=== PATIENT | female | born 1995 | race African-American/Black ===

== ENCOUNTER 2020-09-16 12:15 | Emergency (ER) | payer BC ==
[2020-09-16 12:34] VITALS: BMI 27.8
[2020-09-16 15:16] VITALS: BP 102/62; PULSE 87; TEMP 98.8
== END 2020-09-16 22:00 | disposition home or self-care (01) ==
LOC: JER 12:15
DX: S09.90XA Unspecified injury of head, initial encounter (principal); Z3A.27 27 weeks gestation of pregnancy
CPT/HCPCS: 70450-TC; 72125-TC; 76801-TC; 76815; 76830-TC; 99285-25